=== PATIENT | female | born 1995 | race African-American/Black ===

== ENCOUNTER 2017-09-26 11:21 | Emergency (ER) | payer SELFPAY ==
[~2017-09-26] VITALS: Ht 167.6 cm; Wt 65.0 kg
[~2017-09-26 11:21] MED LIST: PRENTAB31 PO; Z.0.NO CURRENT MEDS
[2017-09-26 11:26] VITALS: BP 105/63; PULSE 80; RESP 17; TEMP 98.5; O2SAT 98
[2017-09-26] MEDS ORDERED: SODIUM CHLOR 0.9% 1000 ML INJ 1,000 ML IV SCH (12:35)
--- NOTE | 2017-09-26 12:39 | PD ---
HPI Chief Complaint: Abdominal Pain Time Seen by Provider: 12:32 Travel History International Travel<30 days: No Contact w/Intl Traveler<30days: No Traveled to known affect area: No History of Present Illness HPI 22-year-old -Russian female presents emergency department with 2 day history of lower abdominal pain. Patient states vomiting twice yesterday. Patient denies fever, chills, vaginal discharge, urinary symptoms, or flank pain. Patient states her last menstrual period was 2 weeks ago. Pain is worse with certain movements, and with palpation. Patient states if she sits or lays still it is improved. Patient states pain is worse today more localized to the right lower quadrant. She has had no surgeries. No known drug allergies. PFSH Past Medical History Medical History: Denies Significant Hx Diminished Hearing: No Immunizations Current: Yes ?: Unknown LMP: 09/06/17 : 2 Past Surgical History Surgical History: No Previous Surgery Social History Alcohol Use: No Tobacco Use: No Substance Use: No Allergies-Medications (Allergen,Severity, Reaction): Coded Allergies: No Known Allergies (Verified Adverse Reaction, Unknown, 09/26/17) Reported Meds & Prescriptions Reported Meds & Active Scripts Active No Active Prescriptions or Reported Medications Review of Systems Except as stated in HPI: all other systems reviewed are Neg General / Constitutional: No: Fever Eyes: No: Visual changes HENT: No: Headaches Cardiovascular: No: Chest Pain or Discomfort Respiratory: No: Shortness of Breath Gastrointestinal: Positive: Nausea, Vomiting, Abdominal Pain, Loss of Appetite (See history of present illness), No: Diarrhea (Yesterday.) Genitourinary: No: Dysuria Musculoskeletal: No: Pain Skin: No Rash Neurologic: No: Weakness Psychiatric: No: Depression Endocrine: No: Polydipsia Hematologic/Lymphatic: No: Easy Bruising Physical Exam Narrative GENERAL: Patient appears in mild distress per SKIN: Warm and dry. Normal color. Normal turgor. No rash HEAD: Atraumatic. Normocephalic. EYES: Pupils equal and round. No scleral icterus. No injection or drainage. ENT: No nasal bleeding or discharge. Mucous membranes pink and moist. Pharynx is clear. Airways patent. NECK: Trachea midline. Supple nontender CARDIOVASCULAR: Regular rate and rhythm. RESPIRATORY: No accessory muscle use. Clear to auscultation. Breath sounds equal bilaterally. GASTROINTESTINAL: Abdomen soft, patient is point tenderness in the right lower quadrant with mild rebound, nondistended. No guarding. Normal bowel sounds are noted in all quadrants. No CVA tenderness. Hepatic and splenic margins not palpable. MUSCULOSKELETAL: Extremities without clubbing, cyanosis, or edema. No obvious deformities. NEUROLOGICAL: Awake and alert. No obvious cranial nerve deficits. Motor grossly within normal limits. Five out of 5 muscle strength in the arms and legs. Normal speech. PSYCHIATRIC: Appropriate mood and affect; insight and judgment normal. Data Data Last Documented VS Vital Signs Date Time Temp Pulse Resp B/P (MAP) Pulse Ox O2 Delivery O2 Flow Rate FiO2 09/26/17 12:54 99 Room Air 09/26/17 11:26 98.5 80 17 105/63 (77) Orders Orders Complete Blood Count With Diff (09/26/17 12:35) Comprehensive Metabolic Panel (09/26/17 12:35) Lipase (09/26/17 12:35) Prothrombin Time / Inr (Pt) (09/26/17 12:35) Act Partial Throm Time (Ptt) (09/26/17 12:35) Urinalysis - C+S If Indicated (09/26/17 12:35) Ct Abd/Pel W Iv Contrast(Rout) (09/26/17 12:35) Iv Access Insert/Monitor (09/26/17 12:35) Ecg Monitoring (09/26/17 12:35) Oximetry (09/26/17 12:35) NPO (09/26/17 12:35) Ondansetron Inj (Zofran Inj) (09/26/17 12:45) Sodium Chlor 0.9% 1000 Ml Inj (Ns 1000 M (09/26/17 12:35) Sodium Chloride 0.9% Flush (Ns Flush) (09/26/17 12:45) Ed Urine Pregnancytest Poc (09/26/17 12:35) Iohexol 350 Inj (Omnipaque 350 Inj) (09/26/17 13:26) Gc And Chlamydia Pcr (09/26/17 13:58) Wet Prep Profile (09/26/17 13:58) Ceftriaxone Inj (Rocephin Inj) (09/26/17 14:15) Ketorolac Inj (Toradol Inj) (09/26/17 14:15) Metronidazole (Flagyl) (09/26/17 14:15) Labs Laboratory Tests Test 09/26/17 12:50 09/26/17 12:55 Urine Color YELLOW Urine Turbidity CLEAR Urine pH 6.5 Urine Specific [place] 1.033 Urine Protein 30 mg/dL Urine Glucose (UA) NEG mg/dL Urine Ketones NEG mg/dL Urine Occult Blood NEG Urine Nitrite NEG Urine Bilirubin NEG Urine Urobilinogen 4.0 MG/DL Urine Leukocyte Esterase NEG Urine WBC 1 /hpf Urine Squamous Epithelial Cells 1 /hpf Urine Mucus MANY /lpf Microscopic Urinalysis Comment CULT NOT INDICATED White Blood Count 5.2 TH/MM3 Red Blood Count 4.31 MIL/MM3 Hemoglobin 12.0 GM/DL Hematocrit 36.1 % Mean Corpuscular Volume 83.8 FL Mean Corpuscular Hemoglobin 27.7 PG Mean Corpuscular Hemoglobin Concent 33.1 % Red Cell Distribution Width 13.3 % Platelet Count 240 TH/MM3 Mean Platelet Volume 9.7 FL Neutrophils (%) (Auto) 41.3 % Lymphocytes (%) (Auto) 44.9 % Monocytes (%) (Auto) 6.9 % Eosinophils (%) (Auto) 6.3 % Basophils (%) (Auto) 0.6 % Neutrophils # (Auto) 2.1 TH/MM3 Lymphocytes # (Auto) 2.3 TH/MM3 Monocytes # (Auto) 0.4 TH/MM3 Eosinophils # (Auto) 0.3 TH/MM3 Basophils # (Auto) 0.0 TH/MM3 CBC Comment DIFF FINAL Differential Comment Prothrombin Time 10.5 SEC Prothromb Time International Ratio 1.0 RATIO Activated Partial Thromboplast Time 26.5 SEC Blood Urea Nitrogen 6 MG/DL Creatinine 0.62 MG/DL Random Glucose 79 MG/DL Total Protein 7.7 GM/DL Albumin 3.5 GM/DL Calcium Level 8.5 MG/DL Alkaline Phosphatase 63 U/L Aspartate Amino Transf (AST/SGOT) 12 U/L Alanine Aminotransferase (ALT/SGPT) 16 U/L Total Bilirubin 0.2 MG/DL Sodium Level 141 MEQ/L Potassium Level 3.6 MEQ/L Chloride Level 110 MEQ/L Carbon Dioxide Level 25.4 MEQ/L Anion Gap 6 MEQ/L Estimat Glomerular Filtration Rate 146 ML/MIN Lipase 76 U/L [facility] Medical Decision Making Medical Screen Exam Complete: Yes Emergency Medical Condition: Yes Differential Diagnosis Lower abdominal pain. Urinary tract infection. Appendicitis. Ovarian cyst. [place]mer[place]. PID. Narrative Course Patient is medically stable at time of exam. Labs ordered including CBC, CMP, coagulation studies, and urinalysis. IV access is obtained and the patient has a CT of the abdomen and pelvis with IV contrast CBC is unremarkable. CMP is unremarkable per Coagulation studies are normal. Urine is negative. Urinalysis is unremarkable. CT scan shows: 1. Free fluid within the cul-de-sac. 2. Fat planes surrounding the uterus are indistinct raising the possibility of pelvic inflammatory disease. Clinical correlation is recommended. 3. Mild hepatomegaly. Patient refuses pelvic exam. Patient will be treated empirically with 1000 mg Rocephin IV, doxycycline 100 mg p.o. now, Flagyl 500 mg now. And Toradol 30 mg IM. Patient will be continued on doxycycline 100 mg twice daily 14 days. Patient continued on metronidazole 500 mg twice daily for 14 days. Patient is given ibuprofen 600 mg 4 times daily #40. Patient is recommended to follow-up with the health department or return if symptoms worsen as needed. Diagnosis Primary Impression: Pelvic inflammatory disease (PID) [facility] Patient Instructions: General Instructions, Pelvic Inflammatory Disease (DC) Additional Instructions: Patient will be treated empirically with 1000 mg Rocephin IV, doxycycline 100 mg p.o. now, Flagyl 500 mg now. And Toradol 30 mg IM. Patient will be continued on doxycycline 100 mg twice daily 14 days. Patient continued on metronidazole 500 mg twice daily for 14 days. Patient is given ibuprofen 600 mg 4 times daily #40. Patient is recommended to follow-up with the health department or return if symptoms worsen as needed. Med/Other Pt SpecificInfo: Prescription(s) given Scripts No Active Prescriptions or Reported Meds Disposition: 01 DISCHARGE HOME Condition: Stable Danny Bess Sep 26, 2017 12:39
[2017-09-26] MEDS ORDERED: SODIUM CHLORIDE 0.9% FLUSH 10 ML FLUSH IV FLUSH PRN (12:45)
[2017-09-26] MEDS ORDERED: ONDANSETRON HCL 4 MG/2 ML VIAL IVP ONE (12:45)
[2017-09-26 12:54] VITALS: O2SAT 99
[2017-09-26 13:19] LABS: AUTOMATED NEUTROPHIL # 2.1 TH/MM3 (1.8-7.7); BASOPHIL % 0.6 % (0.0-2.0); EOSINOPHIL # 0.3 TH/MM3 (0-0.4); EOSINOPHIL % 6.3 % (0.0-4.0); HEMATOCRIT 36.1 % (35.0-46.0); LYMPH % 44.9 % (9.0-44.0); LYMPHOCYTE # 2.3 TH/MM3 (1.0-4.8); MEAN CELL VOLUME 83.8 FL (80.0-100.0); MEAN CORPUSCULAR HEMOGLOBIN 27.7 PG (27.0-34.0); MEAN CORPUSCULAR HGB CONC 33.1 % (32.0-36.0); MEAN PLATELET VOLUME 9.7 FL (7.0-11.0); MONO % 6.9 % (0.0-8.0); MONOCYTE # 0.4 TH/MM3 (0-0.9); NEUT % 41.3 % (16.0-70.0); PLATELET COUNT 240 TH/MM3 (150-450); RED BLOOD COUNT 4.31 MIL/MM3 (4.00-5.30); RED CELL DISTRIBUTION WIDTH 13.3 % (11.6-17.2); WHITE BLOOD COUNT 5.2 TH/MM3 (4.0-11.0)
[2017-09-26] MEDS ORDERED: IOHEXOL 350 MG/ML 10 ML VIAL (for RAD DIAG) IVCONTRAST ONE (13:26)
[2017-09-26 13:28] LABS: BILIRUBIN, URINE NEG (NEG); BLOOD, URINE NEG (NEG); GLUCOSE,URINE NEG (NEG); KETONE, URINE NEG (NEG); MUCUS URINE MANY /lpf (OCC); NITRITE,URINE NEG (NEG); PH, URINE 6.5 (5.0-8.5); SQUAMOUS EPITHELIAL CELL URINE 1 /hpf (0-5); URINE COLOR YELLOW (YELLW/STRAW); URINE LEUKOCYTE ESTERASE NEG (NEG)
[2017-09-26 13:32] LABS: PROTHROMBIN TIME - PATIENT 10.5 SEC (9.8-11.6)
[2017-09-26 13:39] LABS: ALBUMIN 3.5 GM/DL (3.4-5.0); ALT (GPT) 16 U/L (10-53); AST (GOT) 12 U/L (15-37); BICARBONATE 25.4 MEQ/L (21.0-32.0); BLOOD UREA NITROGEN 6 MG/DL (7-18); CALCIUM 8.5 MG/DL (8.5-10.1); CHLORIDE 110 MEQ/L (98-107); CREATININE 0.62 MG/DL (0.50-1.00); GLOMERULAR FILTRATION RATE 146 ML/MIN (>89); GLUCOSE,RANDOM 79 MG/DL (74-106); SODIUM (NA) 141 MEQ/L (136-145)
[2017-09-26 13:41] LABS: ALKALINE PHOSPHATASE 63 U/L (45-117); TOTAL BILIRUBIN ADULT 0.2 MG/DL (0.2-1.0); TOTAL PROTEIN 7.7 GM/DL (6.4-8.2)
--- NOTE | 2017-09-26 13:47 | RADRPT ---
EXAM DATE/TIME: 09/26/2017 13:21 [place] COMPARISON: No previous studies available for comparison. INDICATIONS : Bilateral lower quadrant pain, vomiting. IV CONTRAST: 95 cc Omnipaque 350 (iohexol) IV ORAL CONTRAST: No oral contrast ingested. RADIATION DOSE: 4.93 CTDIvol (mGy) MEDICAL HISTORY : None SURGICAL HISTORY : None. ENCOUNTER: Initial ACUITY: 2 days PAIN SCALE: 5/10 LOCATION: Bilateral lower quadrant TECHNIQUE: Volumetric scanning of the abdomen and pelvis was performed. Using automated exposure control and ad justment of the mA and/or kV according to patient size, radiation dose was kept as low as reasonably achievable to obtain optimal diagnostic quality images. DICOM format image data is available electro nically for review and comparison. FINDINGS: LOWER LUNGS: The visualized lower lungs are clear. LIVER: The liver is mildly prominent. Homogeneous density without lesion. There is no dilation of the bilia ry tree. No calcified gallstones. SPLEEN: Normal size without lesion. PANCREAS: Within normal limits. KIDNEYS: Normal in size and shape. There is no mass, stone or hydronephrosis. ADRENAL GLANDS: Within normal limits. VASCULAR: There is no aortic aneurysm. BOWEL/MESENTERY: The stomach, small bowel, and colon demonstrate no acute abnormality. There is no free intraperitone al air or fluid. The appendix is normal. ABDOMINAL WALL: Within normal limits. RETROPERITONEUM: There is no lymphadenopathy. BLADDER: No wall thickening or mass. REPRODUCTIVE: Free fluid is noted within the cul-de-sac. The fat planes surrounding the uterus are indistinct raisi ng the possibility of pelvic inflammatory disease. Clinical correlation is recommended. INGUINAL: There is no lymphadenopathy or hernia. MUSCULOSKELETAL: Within normal limits for patient age. CONCLUSION: 1. Free fluid within the cul-de-sac. 2. Fat planes surrounding the uterus are indistinct raising the possibility of pelvic inflammatory di sease. Clinical correlation is recommended. 3. Mild hepatomegaly. 1. Phan Villeda MD on September 26, 2017 at 13:41 Board Certified Radiologist. This report was verified electronically.
[2017-09-26] MEDS ORDERED: cefTRIAXone INJ 1,000 MG in SODIUM CHLORIDE 0.9% INJ 100 ML IV ONE (14:15)
[2017-09-26] MEDS ORDERED: KETOROLAC TROMETHAMINE 30 MG/ML (IVP) VIAL IV PUSH ONE (14:15)
[2017-09-26] MEDS ORDERED: metroNIDAZOLE 500 MG TAB PO ONE (14:15)
[2017-09-26] MEDS ORDERED: METR1TAB76 PO (14:17)
[2017-09-26] MEDS ORDERED: DOXY100C PO (14:17)
[2017-09-26] MEDS ORDERED: IBUP-232 PO (14:18)
--- NOTE | 2017-09-26 14:36 | PD ---
Data Data Last Documented VS Vital Signs Date Time Temp Pulse Resp B/P (MAP) Pulse Ox O2 Delivery O2 Flow Rate FiO2 09/26/17 12:54 99 Room Air 09/26/17 11:26 98.5 80 17 105/63 (77) Orders Orders Complete Blood Count With Diff (09/26/17 12:35) Comprehensive Metabolic Panel (09/26/17 12:35) Lipase (09/26/17 12:35) Prothrombin Time / Inr (Pt) (09/26/17 12:35) Act Partial Throm Time (Ptt) (09/26/17 12:35) Urinalysis - C+S If Indicated (09/26/17 12:35) Ct Abd/Pel W Iv Contrast(Rout) (09/26/17 12:35) Iv Access Insert/Monitor (09/26/17 12:35) Ecg Monitoring (09/26/17 12:35) Oximetry (09/26/17 12:35) NPO (09/26/17 12:35) Ondansetron Inj (Zofran Inj) (09/26/17 12:45) Sodium Chlor 0.9% 1000 Ml Inj (Ns 1000 M (09/26/17 12:35) Sodium Chloride 0.9% Flush (Ns Flush) (09/26/17 12:45) Ed Urine Pregnancytest Poc (09/26/17 12:35) Iohexol 350 Inj (Omnipaque 350 Inj) (09/26/17 13:26) Ceftriaxone Inj (Rocephin Inj) (09/26/17 14:15) Ketorolac Inj (Toradol Inj) (09/26/17 14:15) Metronidazole (Flagyl) (09/26/17 14:15) Ed Discharge Order (09/26/17 14:18) Labs Laboratory Tests Test 09/26/17 12:50 09/26/17 12:55 Urine Color YELLOW Urine Turbidity CLEAR Urine pH 6.5 Urine Specific [place] 1.033 Urine Protein 30 mg/dL Urine Glucose (UA) NEG mg/dL Urine Ketones NEG mg/dL Urine Occult Blood NEG Urine Nitrite NEG Urine Bilirubin NEG Urine Urobilinogen 4.0 MG/DL Urine Leukocyte Esterase NEG Urine WBC 1 /hpf Urine Squamous Epithelial Cells 1 /hpf Urine Mucus MANY /lpf Microscopic Urinalysis Comment CULT NOT INDICATED White Blood Count 5.2 TH/MM3 Red Blood Count 4.31 MIL/MM3 Hemoglobin 12.0 GM/DL Hematocrit 36.1 % Mean Corpuscular Volume 83.8 FL Mean Corpuscular Hemoglobin 27.7 PG Mean Corpuscular Hemoglobin Concent 33.1 % Red Cell Distribution Width 13.3 % Platelet Count 240 TH/MM3 Mean Platelet Volume 9.7 FL Neutrophils (%) (Auto) 41.3 % Lymphocytes (%) (Auto) 44.9 % Monocytes (%) (Auto) 6.9 % Eosinophils (%) (Auto) 6.3 % Basophils (%) (Auto) 0.6 % Neutrophils # (Auto) 2.1 TH/MM3 Lymphocytes # (Auto) 2.3 TH/MM3 Monocytes # (Auto) 0.4 TH/MM3 Eosinophils # (Auto) 0.3 TH/MM3 Basophils # (Auto) 0.0 TH/MM3 CBC Comment DIFF FINAL Differential Comment Prothrombin Time 10.5 SEC Prothromb Time International Ratio 1.0 RATIO Activated Partial Thromboplast Time 26.5 SEC Blood Urea Nitrogen 6 MG/DL Creatinine 0.62 MG/DL Random Glucose 79 MG/DL Total Protein 7.7 GM/DL Albumin 3.5 GM/DL Calcium Level 8.5 MG/DL Alkaline Phosphatase 63 U/L Aspartate Amino Transf (AST/SGOT) 12 U/L Alanine Aminotransferase (ALT/SGPT) 16 U/L Total Bilirubin 0.2 MG/DL Sodium Level 141 MEQ/L Potassium Level 3.6 MEQ/L Chloride Level 110 MEQ/L Carbon Dioxide Level 25.4 MEQ/L Anion Gap 6 MEQ/L Estimat Glomerular Filtration Rate 146 ML/MIN Lipase 76 U/L [facility] Supervised Visit with GERI: Yes Narrative Course The history, exam, and medical decision-making in the associated mid-level provider note were completed with my assistance. I reviewed and agree with the findings presented. I attest that I had a [id number] encounter with the patient on the same day, and personally performed and documented my assessment and findings in the medical record. *My assessment and Findings: The 22-year-old woman, right lower quadrant abdominal pain. She is fairly tender on exam. CT scan suggestive of PID but she is refusing pelvic exam. Will treat empirically. They saw the appendix and its definitively normal. I did encourage her to return for any worsening pain fever vomiting or other symptoms. She agrees. Diagnosis Primary Impression: Pelvic inflammatory disease (PID) [facility] Patient Instructions: General Instructions, Pelvic Inflammatory Disease (DC) Additional Instruction: Patient will be treated empirically with 1000 mg Rocephin IV, doxycycline 100 mg p.o. now, Flagyl 500 mg now. And Toradol 30 mg IM. Patient will be continued on doxycycline 100 mg twice daily 14 days. Patient continued on metronidazole 500 mg twice daily for 14 days. Patient is given ibuprofen 600 mg 4 times daily #40. Patient is recommended to follow-up with the health department or return if symptoms worsen as needed. Scripts Ibuprofen (Ibuprofen) 600 Mg Tab 600 MG PO Q6H Y for Pain/Inflammation, #40 TAB 0 Refills Prov: Hair Interiano MD 09/26/17 Metronidazole (Metronidazole) 500 Mg Tab 500 MG PO BID for Infection, #28 TAB 0 Refills Prov: Hair Interiano MD 09/26/17 Doxycycline Hyclate (Doxycycline Hyclate) 100 Mg Cap 100 MG PO BID for Infection for 14 Days, #28 CAP 0 Refills Prov: Hair Interiano MD 09/26/17 Disposition: 01 DISCHARGE HOME Condition: Stable Hair Interiano MD Sep 26, 2017 14:36
== END 2017-09-26 15:07 | disposition home or self-care (01) ==
LOC: NEPD 11:21
DX: N73.9 Female pelvic inflammatory disease, unspecified (principal)
CPT/HCPCS: 74177; 80053; 81001; 83690; 84703; 85025; 85610; 85730; 96361; 96365; 96375; 99284; J0696; J1885; J2405; J7030; Q9967